=== PATIENT | female | born 1950 | race Caucasian/White ===

== ENCOUNTER 2021-10-24 04:42 | Day surgery (SDC) | payer OTHER ==
[2021-10-19 14:10] VITALS: BMI 23.3
[2021-10-24] MEDS ORDERED: EPINEPHrine 1:10,000 (P-F SYR) 1 MG/10 ML DISP.SYRIN IVPUSH ONE (08:28)
[2021-10-24 08:56] VITALS: TEMP 97.1
[2021-10-24] MEDS ORDERED: EPINEPHrine 1:10,000 (P-F SYR) 1 MG/10 ML DISP.SYRIN ONE (09:25)
[2021-10-24 09:47] VITALS: BP 155/66; PULSE 101
== END 2021-10-24 09:50 | disposition home or self-care (01) ==
LOC: JASU-ENDO 04:42
PROVIDERS: ATTEND Internal Medicine Gastroenterology
PROC: 0DB98ZX Excision of Duodenum, Via Natural or Artificial Opening Endoscopic, Diagnostic (ICD-10-PCS; 2021-10-24)
PROC: 0DB78ZX Excision of Stomach, Pylorus, Via Natural or Artificial Opening Endoscopic, Diagnostic (ICD-10-PCS; 2021-10-24)
PROC: 0DB68ZX Excision of Stomach, Via Natural or Artificial Opening Endoscopic, Diagnostic (ICD-10-PCS; 2021-10-24)
PROC: 0DB68ZX Excision of Stomach, Via Natural or Artificial Opening Endoscopic, Diagnostic (ICD-10-PCS; 2021-10-24)
PROC: 3E0G8GC Introduction of Other Therapeutic Substance into Upper GI, Via Natural or Artificial Opening Endoscopic (ICD-10-PCS; 2021-10-24)
PROC: 0DJD8ZZ Inspection of Lower Intestinal Tract, Via Natural or Artificial Opening Endoscopic (ICD-10-PCS; principal; 2021-10-24 08:30)
DX: D50.9 Iron deficiency anemia, unspecified (principal); K31.7 Polyp of stomach and duodenum; K29.70 Gastritis, unspecified, without bleeding; K31.89 Other diseases of stomach and duodenum; K64.9 Unspecified hemorrhoids; I10 Essential (primary) hypertension; E11.9 Type 2 diabetes mellitus without complications
CPT/HCPCS: 82962; 88305-TC; 88342-TC

== ENCOUNTER 2022-04-12 04:29 | Day surgery (SDC) | payer OTHER ==
[2022-04-09 09:16] VITALS: BMI 23.3
[2022-04-12 08:24] VITALS: TEMP 98
[2022-04-12 09:05] VITALS: PULSE 61
[2022-04-12 09:19] LABS: BASO % 0.9 % (0-2.0); EOS % 0.8 % (0-4.5); HEMATOCRIT 35.3 % (32.4-45.2); HEMOGLOBIN 11.8 GM/dL (10.7-15.3); LYMPH % 15.8 % (8-40); MCHC 33.4 g/dl (32.0-36.0); MEAN CELL VOLUME 92.8 fl (80-96); MEAN PLT VOLUME 8.6 fl (7.5-11.1); MONO % 6.7 % (3.8-10.2); NEUT % 75.8 % (42.8-82.8); PLATELET COUNT 270 10^3/uL (134-434); RDW 13.6 % (11.6-15.6); WHITE BLOOD COUNT 6.8 K/mm3 (4.0-10.0)
[2022-04-12 09:26] VITALS: BP 129/58; RESP 13
== END 2022-04-12 09:33 | disposition home or self-care (01) ==
LOC: JASU-ENDO 04:29
PROVIDERS: ATTEND Internal Medicine Gastroenterology
PROC: 0DB78ZX Excision of Stomach, Pylorus, Via Natural or Artificial Opening Endoscopic, Diagnostic (ICD-10-PCS; 2022-04-12)
PROC: 0DB68ZX Excision of Stomach, Via Natural or Artificial Opening Endoscopic, Diagnostic (ICD-10-PCS; principal; 2022-04-12 08:00)
DX: D50.9 Iron deficiency anemia, unspecified (principal); K29.50 Unspecified chronic gastritis without bleeding
CPT/HCPCS: 36415; 82728; 82962; 83540; 83550; 85025; 88305-TC; 88341-TC; 88342-TC

== ENCOUNTER 2024-08-19 11:31 | Inpatient (IN) | payer OTHER ==
[2024-08-19] MEDS ORDERED: FAMOTIDINE 20 MG TABLET ONE (12:59)
[2024-08-19] MEDS ORDERED: SIMETHICONE 80 MG TAB.CHEW (FP) ONE (12:59)
[2024-08-19] MEDS: SIMETHICONE 80 MG TAB.CHEW (FP) PO ONE (13:00)
[2024-08-19] MEDS: FAMOTIDINE 20 MG TABLET PO ONE (13:00)
[2024-08-19 13:43] LABS: BASO % 0.7 % (0-2.0); EOS % 1.7 % (0-4.5); HEMATOCRIT 37.4 % (32.4-45.2); LYMPH % 20.3 % (8-40); MCH 29.3 pg (25.7-33.7); MCHC 32.2 g/dl (32.0-36.0); MEAN PLT VOLUME 8.4 fl (7.5-11.1); MONO % 12.8 % (3.8-10.2); NEUT % 64.5 % (42.8-82.8); PLATELET COUNT 307 10^3/uL (134-434); RBC 4.11 M/mm3 (3.60-5.2); RDW 15.5 % (11.6-15.6); WHITE BLOOD COUNT 7.2 K/mm3 (4.0-10.0)
[2024-08-19 14:10] LABS: POTASSIUM 4.3 mmol/L (3.5-5.1)
[2024-08-19 14:11] LABS: CALCIUM 9.2 mg/dL (8.5-10.1)
[2024-08-19 14:12] LABS: ALBUMIN 3.9 g/dl (3.4-5.0); MAGNESIUM 1.9 mg/dL (1.8-2.4)
[2024-08-19 14:15] LABS: CREATININE 0.6 mg/dL (0.55-1.3); PHOSPHOROUS 3.2 mg/dL (2.5-4.9)
[2024-08-19 14:16] LABS: BILIRUBIN,TOTAL 1.3 mg/dL (0.2-1); TOT PROT 8.3 g/dl (6.4-8.2)
[2024-08-19 14:18] LABS: URINE APPEARANCE CLEAR; URINE BILIRUBIN NEGATIVE (NEGATIVE); URINE COLOR YELLOW; URINE GLUCOSE (UA) NEGATIVE (NEGATIVE); URINE KETONE NEGATIVE (NEGATIVE); URINE LEUK ESTERASE NEGATIVE (NEGATIVE); URINE NITRITE NEGATIVE (NEGATIVE); URINE PROTEIN NEGATIVE (NEGATIVE); URINE UROBILINOGEN 0.2 mg/dL (0.2-1.0)
[2024-08-19 15:43] LABS: BILIRUBIN,DIRECT 0.2 mg/dL (0.0-0.2)
[2024-08-19 18:19] LABS: POTASSIUM 3.8 mmol/L (3.5-5.1)
[2024-08-19 18:21] LABS: CALCIUM 9.3 mg/dL (8.5-10.1)
[2024-08-19 18:22] LABS: ALBUMIN 3.9 g/dl (3.4-5.0); BLOOD UREA NITROGEN 6.3 mg/dL (7-18)
[2024-08-19 18:25] LABS: CREATININE 0.6 mg/dL (0.55-1.3)
[2024-08-19 18:26] LABS: TOT PROT 8.1 g/dl (6.4-8.2)
[2024-08-19] MEDS ORDERED: CARVEDILOL 25 MG TABLET (FP) ONE (21:03)
[2024-08-19] MEDS: CARVEDILOL 12.5 MG TABLET (FP) PO ONE (21:48)
[2024-08-19] MEDS: CARVEDILOL 25 MG TABLET (FP) PO ONE (22:34)
[2024-08-19] MEDS: OSELTAMIVIR PHOSPHATE 30 MG CAPSULE PO SCH (23:02)
[2024-08-20] MEDS ORDERED: LOSARTAN POTASSIUM 50 MG TABLET ONE (01:25)
[2024-08-20] MEDS: LOSARTAN POTASSIUM 50 MG TABLET PO ONE (01:31)
[2024-08-20 03:27] VITALS: BMI 24.3
[2024-08-20] MEDS: SODIUM CHLORIDE 1,000 ML IV STA ×2 (06:25→15:20)
[2024-08-20] MEDS: SODIUM CHLORIDE 1,000 ML IV SCH (07:07)
[2024-08-20 08:05] LABS: POTASSIUM 3.4 mmol/L (3.5-5.1)
[2024-08-20 08:07] LABS: ALBUMIN 3.5 g/dl (3.4-5.0); BASO % 0.9 % (0-2.0); BLOOD UREA NITROGEN 7.5 mg/dL (7-18); CALCIUM 8.4 mg/dL (8.5-10.1); EOS % 1.1 % (0-4.5); HEMATOCRIT 34.4 % (32.4-45.2); HEMOGLOBIN 11.5 GM/dL (10.7-15.3); LYMPH % 21.4 % (8-40); MCH 30.7 pg (25.7-33.7); MCHC 33.5 g/dl (32.0-36.0); MEAN CELL VOLUME 91.8 fl (80-96); MEAN PLT VOLUME 8.4 fl (7.5-11.1); MONO % 12.9 % (3.8-10.2); NEUT % 63.7 % (42.8-82.8); PLATELET COUNT 288 10^3/uL (134-434); RBC 3.75 M/mm3 (3.60-5.2); RDW 15.1 % (11.6-15.6); WHITE BLOOD COUNT 6.1 K/mm3 (4.0-10.0)
[2024-08-20 08:10] LABS: CREATININE 0.7 mg/dL (0.55-1.3)
[2024-08-20 08:12] LABS: BILIRUBIN,TOTAL 1.2 mg/dL (0.2-1); TOT PROT 7.3 g/dl (6.4-8.2)
[2024-08-20 08:26] LABS: INR 1.19 (0.83-1.09); PROTHROMBIN TIME (PATIENT) 13.1 SEC (9.7-13.0)
[2024-08-20] MEDS: LOSARTAN POTASSIUM 50 MG TABLET PO SCH (09:52)
[2024-08-20] MEDS: ENOXAPARIN NA (PORCINE) 40 MG/0.4 ML DISP.SYRIN SQ SCH (09:52)
[2024-08-20 11:07] LABS: BLOOD UREA NITROGEN 8.3 mg/dL (7-18); CALCIUM 8.8 mg/dL (8.5-10.1)
[2024-08-20] MEDS: CARVEDILOL 25 MG TABLET (FP) PO SCH (12:23)
[2024-08-20] MEDS: HYDROCHLOROTHIAZIDE 25 MG TABLET (FP) PO SCH (12:23)
[2024-08-20 12:43] LABS: HIV INTERPRETATION NEGATIVE (NEGATIVE)
[2024-08-20] MEDS: CARVEDILOL 12.5 MG TABLET (FP) PO SCH (21:16)
[2024-08-21 09:01] LABS: BASO % 0.6 % (0-2.0); EOS % 1.2 % (0-4.5); HEMOGLOBIN 11.4 GM/dL (10.7-15.3); LYMPH % 36.9 % (8-40); MCH 30.5 pg (25.7-33.7); MCHC 33.4 g/dl (32.0-36.0); MEAN CELL VOLUME 91.2 fl (80-96); MEAN PLT VOLUME 8.3 fl (7.5-11.1); MONO % 14.4 % (3.8-10.2); NEUT % 46.9 % (42.8-82.8); PLATELET COUNT 271 10^3/uL (134-434); RBC 3.73 M/mm3 (3.60-5.2); RDW 15.5 % (11.6-15.6); WHITE BLOOD COUNT 4.7 K/mm3 (4.0-10.0)
[2024-08-21 09:21] LABS: POTASSIUM 3.3 mmol/L (3.5-5.1)
[2024-08-21 09:23] LABS: CALCIUM 8.5 mg/dL (8.5-10.1)
[2024-08-21 09:24] LABS: ALBUMIN 3.3 g/dl (3.4-5.0); BLOOD UREA NITROGEN 10.2 mg/dL (7-18); MAGNESIUM 1.8 mg/dL (1.8-2.4)
[2024-08-21 09:26] VITALS: TEMP 98.4
[2024-08-21 09:27] LABS: CREATININE 0.6 mg/dL (0.55-1.3)
[2024-08-21 09:29] LABS: BILIRUBIN,TOTAL 0.9 mg/dL (0.2-1); TOT PROT 6.8 g/dl (6.4-8.2)
[2024-08-21 13:24] VITALS: BP 134/68
[2024-08-21 13:35] VITALS: PULSE 51; RESP 18
== END 2024-08-21 13:33 | disposition home or self-care (01) | DRG 392 ==
LOC: JER 11:31 → JERBED 17:08 → OBSVTOIN 22:39 → J7W 08-20 02:42
PROVIDERS: ADMIT Internal Medicine
DX: A09 Infectious gastroenteritis and colitis, unspecified (principal); E87.1 Hypo-osmolality and hyponatremia; E11.9 Type 2 diabetes mellitus without complications; J10.1 Influenza due to other identified influenza virus with other respiratory manifestations; I10 Essential (primary) hypertension; E78.5 Hyperlipidemia, unspecified; E03.9 Hypothyroidism, unspecified; R79.89 Other specified abnormal findings of blood chemistry; I16.0 Hypertensive urgency; E86.1 Hypovolemia; R74.01 Elevation of levels of liver transaminase levels
CPT/HCPCS: 0241U-QW; 36415; 74177-TC; 74181-TC; 76705-TC; 80048; 80053; 81003; 82248; 82438; 82533; 82550; 82570; 82962; 82977; 83605; 83690; 83735; 83935; 83986; 83993; 84100; 84300; 84302; 84439; 84443; 84484; 84999; 85025; 85610; 86704; 86708; 86753; 86803; 87045; 87046; 87086; 87205; 87209; 87324; 87328; 87329; 87340; 87389; 87449; 87517; 87798; 93005; 93010; 99285-25; G0378